=== PATIENT | female | born 2000 | race African-American/Black ===

== ENCOUNTER → 2021-09-30 13:02 | Outpatient (CLI) | payer BC, SELFPAY ==
--- NOTE | 2021-09-30 | ECG_ITS ---
APPROVED REPORT Exam: Resting ECG HR:88 bpm ECG Measurements Heart Rate 88 AXES CA 156 P 66 QRSd 74 QRS 86 QT 342 T 29 QTc 413 Conclusion Normal sinus rhythm Possible Left atrial enlargement Borderline ECG Electronically signed by : Noe Francis MD 09/30/2021 22:07:53
[2021-09-30 14:04] LABS: Basophils # 0.2 K/mm3 (0-0.2); Eosinophils # 0.2 K/mm3 (0.0-0.4); Eosinophils % 2.5 % (0.1-12.0); Hematocrit 39.1 % (37.0-47.0); Hemoglobin 12.1 g/dL (12.2-16.2); Lymphocytes # 3.2 K/mm3 (0.7-4.5); Lymphocytes % 41.1 % (10-50); Mean Corpuscular HGB Conc 30.9 g/dL (31.8-35.4); Mean Corpuscular Hemoglobin 24.2 pg (27.0-31.2); Mean Corpuscular Volume 78.5 fl (81-99); Monocytes # 0.3 K/mm3 (0.1-1.0); Monocytes % 3.6 % (1.7-9.3); Neutrophils % 50.8 % (37.0-80.0); Platelet Count 249 K/mm3 (142-424); Red Blood Count 4.98 M/mm3 (4.20-5.40); Red Cell Distribution Width 13.4 % (11.5-17.5); White Blood Count 7.9 K/mm3 (4.8-10.8)
[2021-09-30 14:35] LABS: Anion Gap 12.3 mEq/L (5-15); Blood Urea Nitrogen 13 mg/dl (7-17); Calcium 9.5 mg/dl (8.4-10.2); Carbon Dioxide 27 mmol/L (22.0-30.0); Chloride 104 mmol/L (98-107); Estimated Glomerular Filt Rate 153 ml/min (>60); GFR (African American) 185 ML/MIN (>60); Glucose 97 mg/dl (74-100); Potassium 4.3 mmoL/L (3.5-5.1); Sodium 139 mmol/L (136-145)
== END ==
PROVIDERS: Visit Provider Otolaryngology
DX: Z01.818 Encounter for other preprocedural examination (principal); Z11.52 Encounter for screening for COVID-19; Q18.1 Preauricular sinus and cyst
CPT/HCPCS: 36415; 80048; 85025; 93005; C9803; U0003; U0005

== ENCOUNTER 2021-10-02 07:15 | Day surgery (SDC) | payer BC, SELFPAY ==
[2021-09-30 09:08] VITALS: BMI 32.1
[2021-10-02] VITALS (13 sets, daily range): BP systolic 99–129; BP diastolic 55–77; PULSE 73–106; RESP 12–18; TEMP 36.2–36.8; O2SAT 97–100
[2021-10-02 07:43] LABS: Urine Pregnancy, HCG Qual. Negative (Negative)
--- NOTE | 2021-10-02 07:46 | HMH.ANESCL ---
[facility] Anesthesia Checklist - Patient Identification Patient Identification: Arm Band - Structural Data Admitted From: Home Planned Operative Procedure/s: Excision of lesion ear canal Consent for Planned Operative Procedure(s) Verified: Yes - NPO Status Verified Time NPO: 00:00 - Additional verifications Anesthesia Reactions: No Hx Blood Transfusions: No Blood Transfusion Reaction: No - Airway Assessment C-Spine Mobility Assessed: Yes TMJ Mobility Assessed: Yes Dentition: Good Dentition - Neurological Assessment Level of Consciousness: Awake Hx Seizures: No Numbness or tingling in extremities: No - Anesthesia Plan Anesthesia Risk discussed: Yes Anesthesia Plan: Verified ASA Class: I Anesthesia Type: General [facility] History I have reviewed the patient's past medical history: Yes Medical History: Denies:: Cancer, Diabetes Mellitus Type 1, Diabetes Mellitus Type 2, Internal Pacemaker, MRSA, Seizures *Have you ever received a pneumonia vaccine?: No *Have you received a flu vaccine this season?: No Other Medical History: Denies: Blood Transfusion Reaction Anesthesia experience/problems:: None Other Surgeries: Yes: Other. No: Pacemaker Amputation: No Fractures: No - *Social History Last grade of school completed: Some college Smoking Status: Never smoker Alcohol Intake: never Substance Use Type: marijuana *Occupational Status:: employed, student Housing: house *Travel in the last 8 weeks: None Family Hx:: Diabetes
--- NOTE | 2021-10-02 08:52 | P.PN_ITS ---
[facility] Anesthesia Record Part I Intake, IV Amount: 600 Estimated blood loss (mL): 0 Urine output (mL): 0 Blood Pressure: 109/70 SaO2: 99 Pulse Rate: 73 Respiratory Rate: 13 Temperature: 97.2 F Patient is:: Drowsy Stable to PACU at:: 08:48
--- NOTE | 2021-10-02 10:19 | HMH.OPNOTE ---
Date of procedure: 10/02/21 Pre-op Diagnosis:: 2 cm cyst occluding left external auditory meatus Post-op Diagnosis:: same Procedure performed:: Excision of 2 cm cyst involving the lateral aspect of the left ear canal Surgeon:: Willie Delarosa MD HEADING AND PRIMING OPERATOR:: Mauricio Greenberg Anesthesia: GETA Estimated blood loss (mL): 2 Operative findings:: same Operative note:: With the patient under general anesthesia the left ear was prepped and draped. 2 cc of 2% lidocaine with epi were injected into the left ear canal. An incision was made along the lateral aspect of the cyst which was completely occluding the left ear canal and the cystic lesion was removed in entirety and submitted. All bleeding was stopped with bipolar cautery blood loss was 2 cc. Surgicel snow was placed in the defect. And 2 chromic sutures were applied to the lateral aspect of the incisional area. The ear canal was then thoroughly irrigated and it was patent and it was possible to see the tympanic membrane which was normal. Quarter-inch gauze was then placed in the lateral aspect of the left ear canal and soaked in Ciprodex drops. Cottonoid was placed in the hollow of the ear canal and a Band-Aid was placed over that. The patient tolerated the procedure well and was sent to recovery in good general condition. Condition: stable Disposition: PACU Complications:: none
--- NOTE | 2021-10-03 08:08 | P.PN_ITS ---
[facility] Anesthesia Record Part II Discharge Time: 09:28 Destination: [facility] PACU nurse assessment reviewed?: Yes Patient Condition:: Good Anesthesia Complications:: None Swallowing reflex intact?: Yes Cyanosis?: No Blood Pressure: 112/66 Pulse Rate: 85 Temperature: 98.2 F Mental Status: Alert & Oriented Pain level:: 0 Nausea and/or vomitting:: None Intake, IV Amount: 1,000
[2021-10-03 08:09] VITALS: BP 112/66; PULSE 85; TEMP 36.8
== END 2021-10-02 10:15 | disposition home or self-care (01) ==
LOC: OR 07:17
PROVIDERS: Visit Provider Otolaryngology
PROC: (CPT 69145; principal; 2021-10-02 07:30)
DX: Q18.1 Preauricular sinus and cyst (principal); F12.90 Cannabis use, unspecified, uncomplicated; Z83.3 Family history of diabetes mellitus
CPT/HCPCS: 69145; 81025; 96374; 96375; J2405